=== PATIENT | male | born 1975 | race Caucasian/White ===

== ENCOUNTER → 2017-09-09 | Outpatient (CLI) | payer OTHER ==
[~2017-09-09] MED LIST: MULT1TAB54 PO
--- NOTE | 2017-09-09 19:03 | RADIOLOGY IMAGING REPORT ---
FACILITY: [facility] [place] PATIENT NAME: Randolph Ornelas : 1975 MR: [id number] V: [id number] EXAM DATE: ORDERING PHYSICIAN: KRYSTLE HEBERT TECHNOLOGIST: Location: [facility] Patient: Randolph Ornelas : 1975 Visit/Account:[id number] Date of Sevice: 09/09/2017 SCROTAL ULTRASOUND INDICATION: Inferior sebaceous cyst of the scrotum. COMPARISON: None available. FINDINGS: Right testicle measures 4.6 x 2.7 x 3.0 cm in cc, AP, and transverse dimensions respectively. There is normal arterial and venous blood flow. Moderate right hydrocele. No varicocele identified. The right epididymal head measures 1.5 cm. Normal blood flow. No focal abnormality. Left testicle measures 4.1 x 2.2 x 2.6 cm in cc, AP, and transverse dimensions respectively. There is normal arterial and venous blood flow. Moderate left hydrocele. No varicocele identified. The left epididymal head measures 1.4 cm. Normal blood flow. No focal abnormality. The bilateral testicles appear homogenous in echogenicity. The scrotal skin is thickened and edematous. No focal scrotal lesion or sebaceous cyst is identified. IMPRESSION: 1. Normal blood flow within the bilateral testicles with no focal abnormality. 2. Moderate bilateral hydrocele. 3. Thickening and edematous changes to the scrotal skin. No discrete focal abnormality or cyst is marie ntified. I called report to KRYSTLE HEBERT at 09/09/2017 6:00 PM. Report Dictated By: Leif Lowe at 09/09/2017 6:00 PM Report E-Signed By: Leif Lowe at 09/09/2017 7:00 PM WSN:[id number]
== END ==
LOC: US 16:55
PROVIDERS: ATTEND Nurse Practitioner Family
DX: N43.2 Other hydrocele (principal)
CPT/HCPCS: 76870

== ENCOUNTER → 2017-09-09 | Outpatient (REF) | payer OTHER ==
[2017-09-09 16:58] LABS: PLATELET COUNT, AUTOMATED 263 K/uL (150-450)
== END ==
PROVIDERS: ATTEND Nurse Practitioner Family
DX: N50.819 Testicular pain, unspecified (principal)
CPT/HCPCS: 82040; 82247; 82310; 82374; 82435; 82565; 82947; 83880; 84075; 84132; 84155; 84295; 84450; 84460; 84520; 85025

== ENCOUNTER 2018-04-25 00:49 | Day surgery (SDC) | payer OTHER ==
--- NOTE | 2018-04-24 19:33 | HISTORY AND PHYSICAL ---
DATE OF ADMISSION: April 25, 2018 CHIEF COMPLAINT Scrotal skin infection with sinus drainage. HISTORY OF PRESENT ILLNESS Patient is a 43-year-old white male who was originally seen in the Urology Clinic back in 2008 with an ongoing scrotal skin infection. At that time, physical exam revealed a midline area of small sinus drainage of purulent material in the scrotum. His testes were uninvolved. He was treated with p.o. antibiotics and scheduled for excision in the operating room. However, the patient did not return until September 2017 when he had significant pain and swelling. At that time, physical exam revealed a small midline abscess at the old skin fistula site. This was I and D'd, packed, and subsequently healed over the course of several weeks. On physical exam, it still revealed a small, fistulized tract right in the midline of the inferior scrotum with a continued small amount of discharge on expression. He is now being brought to the operating room for planned excision of this scrotal subcutaneous skin sinus tract. PAST MEDICAL HISTORY 1. Sleep apnea. 2. Degenerative joint disease. 3. Hypothyroidism. 4. Prediabetes. 5. Depression and anxiety. PAST SURGICAL HISTORY 1. Oral surgery. 2. Abdominal hernia mesh surgery. 3. LASIK eye surgery. CURRENT MEDICATIONS 1. Aspirin. 2. Multivitamins. 3. Glipizide. 4. Levothyroxine. 5. Blum fatty acids. 6. Buspirone. ALLERGIES ERYTHROMYCIN. FAMILY HISTORY Noncontributory. REVIEW OF SYSTEMS Patient denies a productive cough, fever, chills, nausea, vomiting, change in bowel or bladder habits, gross hematuria, abdominal pain, or chronic headaches. PHYSICAL EXAMINATION VITAL SIGNS: Patient is a 43-year-old, moderately obese, white male in no acute distress. HEENT: Normocephalic, atraumatic. CHEST: Clear to auscultation bilaterally. CARDIOVASCULAR: Regular rate and rhythm. ABDOMINAL: Soft, nontender. No masses are palpated. GENITOURINARY: Deferred to the OR. EXTREMITIES: Without clubbing, cyanosis, or edema. NEUROLOGIC: Nonfocal. IMPRESSION A 43-year-old white male with a midline scrotal sebaceous skin sinus with recurrent infections. PLAN We will perform an excision of the scrotal skin tract. [facility]
[~2018-04-25] VITALS: Ht 193 cm; Wt 197.8 kg
[~2018-04-25 00:49] MED LIST changes: +ASPI-1471 PO; +BUSP15TA69 PO; +CHOL10005 PO; +GLIP-152 PO; +LACT1CAP9 PO; +LEVO200T44 PO; +OMEG100T3 PO
[2018-04-25] MEDS ORDERED: LIDOCAINE/SOD BICARB 8.4% SYR ID ONE (06:45)
[2018-04-25] MEDS ORDERED: ceFAZolin(*) 1 GM VIAL 1 GM, GENTAMICIN(*) 80 MG/2 ML VIAL 60 MG in NS 0.9% IRRIGATION ... IR ONE ×2 (06:45→09:50)
[2018-04-25] MEDS ORDERED: MIDAZOLAM 2 MG/2 ML VIAL IVP PRN (06:45)
[2018-04-25] MEDS ORDERED: NORMOSOL R SOLN(*) 1000 ML BAG 1,000 ML IV PRN (06:45)
[2018-04-25] MEDS ORDERED: ceFAZolin(*) 1 GM VIAL 1 GM in NS(*) 0.9% 100 ML ADDVANT BAG 100 ML IVPB ONE (06:45)
[2018-04-25] MEDS ORDERED: FAMOTIDINE 20 MG TAB PO ONE (06:45)
[2018-04-25 07:57] LABS: PLATELET COUNT, AUTOMATED 250 K/uL (150-450)
[2018-04-25] MEDS ORDERED: PROPOFOL EMUL(*) 10MG/ML 20 ML 40 ML ONE (08:17)
[2018-04-25] MEDS ORDERED: LIDOCAINE MPF 1% 5 ML VIAL ONE (08:17)
[2018-04-25] MEDS ORDERED: METOCLOPRAMIDE 10 MG/2 ML SDV ONE (08:17)
[2018-04-25] MEDS ORDERED: ONDANSETRON 4 MG/2 ML VIAL ONE (08:17)
[2018-04-25] MEDS ORDERED: DEXAMETHASONE SOD 4 MG/ML VIAL ONE (08:18)
[2018-04-25] MEDS ORDERED: fentaNYL CITR 100 MCG/2 ML AMP ONE ×2 (08:22→11:03)
[2018-04-25 08:27] VITALS: BP 145/85
[2018-04-25] MEDS ORDERED: ROPIVACAINE 0.2% 20 ML VIAL ONE ×2 (09:01→10:27)
[2018-04-25] MEDS ORDERED: ROCURONIUM BROM 10 MG/ML 10 ML ONE (09:30)
[2018-04-25] MEDS ORDERED: SUCCINYLCHOL CHL 200MG/10ML VL ONE (09:30)
[2018-04-25] MEDS ORDERED: KETOROLAC 30 MG/ML VIAL ONE (10:06)
[2018-04-25] MEDS ORDERED: LIDOCAINE 2% IV 100 MG/5ML SYR ONE (11:10)
[2018-04-25] MEDS ORDERED: DOCU-416 PO (11:57)
[2018-04-25] MEDS ORDERED: SULF-198 PO (11:57)
[2018-04-25] MEDS ORDERED: NEOM1PAC11 TP (11:57)
[2018-04-25] MEDS ORDERED: IBUP600T22 PO (11:58)
[2018-04-25] MEDS ORDERED: HYDR-653 PO (11:58)
[2018-04-25 12:40] VITALS: BP 129/76
[2018-04-25] MEDS ORDERED: APAP/HYDROCODONE 325/5 TAB ONE (13:32)
--- NOTE | 2018-04-25 14:31 | OPERATIVE REPORT 1 ---
EVENT DATE: April 25, 2018 SURGEON: Rc Coffman MD ANESTHESIOLOGIST: Killian Ansari MD ANESTHESIA: General. PREOPERATIVE DIAGNOSIS Midline scrotal subcutaneous skin tracts. POSTOPERATIVE DIAGNOSIS Midline scrotal subcutaneous skin tracts. PROCEDURE PERFORMED Excision of midline scrotal subcutaneous sinus skin tracts. ESTIMATED BLOOD LOSS 50 CC. IV FLUIDS Crystalloids. COMPLICATIONS None. CONDITION Patient is taken to the recovery room awake and in stable condition. PATHOLOGY Scrotal skin tracts for permanent analysis. STATEMENT OF MEDICAL NECESSITY Patient is a 43-year-old male who was originally seen in the Urology Clinic in 2008 with ongoing drainage from the scrotal skin. Physical exam at that time revealed a midline skin tract with whitish-yellowish discharge, consistent with a sinus tract sebaceous type cyst. He was treated with antibiotics and consulted as to surgical removal. He opted for conservative treatment and did well until 2017, when in September he experienced an abscess in one of these tracts. This was incised and drained in the office and successfully treated. He has continued to have a small amount of discharge from these tracts. He has no complaints of testicular or abdominal pain, change in bowel habits or with urination. He is now being brought to the operating room for surgical excision of these midline scrotal skin sinus tracts. DESCRIPTION OF PROCEDURE The patient was brought to the operating room after general anesthetic was obtained. He was placed in the dorsal lithotomy position and prepped and draped in the usual sterile manner. Scrotal stay stitch was placed in the scrotum and on the lower abdominal skin to provide exposure to the undersurface of the scrotum. Physical exam confirm the presence of the skin tracts starting at approximately the lower anterior surface of the scrotum all the way down almost to the perineum. I was able to take a lacrimal duct probe and explore these skin tracts. All of them were quite superficial from just above the perineum up and o the most anterior one. This one did have an area that was approximately 1 cm around, which was a firm and I could express whitish discharge. It did not appear to be truly infected. There was no surrounding erythema or other signs of active infection. At this point, an elliptical incision was made around the midline median raphe of the scrotum to include the entire skin tract from the anterior posterior position. This measured approximately 8 to 10 inches in length. The overlying skin down to the ____ was taken with the excision and sent to pathology for permanent analysis. At this point, copious amounts of antibiotic double solution was used to irrigate the wound. Small bleeding vessels were controlled with electrocautery. The wound was inspected. The tunic vaginalis had not been violated on either side. The incision was then closed with two deep layers of interrupted 3-0 Chromic stitches followed by an interrupted skin layer of interrupted 2-0 mattress stitches. At the conclusion of the case, antibiotic ointment was placed along the incision edge. A sterile fluff dressing was applied on the incision. The scrotal stay stitches were removed. The fluff dressing was placed in mesh type underwear for pressure. The patient was awakened in the or and taken to the recovery area in stable condition. PLAN The plan will be to allow Randolph to be discharged home today. He is to keep his scrotal on with ice pack for the next 36 hours. He can shower after 48. He is being discharged home on Palisade, Colace, Motrin and Bactrim for a week. We will plan to see him in the Urology Clinic in four to six weeks for followup. PEGGY
== END 2018-04-25 12:40 | disposition home or self-care (01) ==
LOC: OR 00:49
PROVIDERS: ATTEND Urology
DX: N50.89 Other specified disorders of the male genital organs (principal); E66.01 Morbid (severe) obesity due to excess calories; Z68.43 Body mass index [BMI] 50.0-59.9, adult; E11.9 Type 2 diabetes mellitus without complications; K76.0 Fatty (change of) liver, not elsewhere classified; Z87.891 Personal history of nicotine dependence; G47.33 Obstructive sleep apnea (adult) (pediatric); I10 Essential (primary) hypertension; F41.9 Anxiety disorder, unspecified
CPT/HCPCS: 11426; 36415; 36416; 81001; 82948; 84443; 85025; 87088; 88305; 94660; J0330; J0690; J1100; J1580; J1885; J2001; J2250; J2405; J2704; J2765; J2795; J3010; J7050; 82040; 82247; 82310; 82374; 82435; 82565; 82947; 84075; 84132; 84155; 84295; 84450; 84460; 84520